=== PATIENT | male | born 1945 | race Caucasian/White ===

== ENCOUNTER 2019-03-12 10:54 | Emergency (ER) | payer OTHER, BC ==
[~2019-03-12] VITALS: Ht 177.8 cm; Wt 117.9 kg
[~2019-03-12 10:54] MED LIST: ALLOPURINOL 30300 M2 PO; ASPIR 8181 MG PO; DIOVAN HCT 3201 EACH PO; INDAPAMIDE1.25 MG PO; LIPITOR10 MG PO; NAPROSYN500 MG PO; NORFLEX100 MG PO; NORVASC5 MG PO; TENORMIN50 MG PO
[2019-03-12 11:57] LABS: URINE BILIRUBIN NEGATIVE (Negative); URINE BLOOD 3+ (Negative); URINE CLARITY CLOUDY; URINE COLOR RED; URINE GLUCOSE-RANDOM* NEGATIVE (Negative); URINE KETONES NEGATIVE (Negative); URINE NITRITE-REFLEX NEGATIVE (Negative); URINE PROTEIN (DIPSTICK) 3+ (Negative)
[2019-03-12 12:06] LABS: URINE LEUKOCYTES-REFLEX 1+ (Negative)
[2019-03-12 12:50] LABS: HEMATOCRIT 42.8 % (42.0-52.0); HEMOGLOBIN 14.4 gm/dL (14.0-18.0); MCH 28.7 pg (26.0-34.0); MCHC 33.6 g/dL (28.0-37.0); MCV 85.4 fL (80.0-100.0); RBC 5.01 mil/uL (4.50-6.00); WBC 8.8 thou/uL (4.0-11.0)
[2019-03-12 12:54] LABS: URINE RBC >20 Many /HPF (0-2)
[2019-03-12 12:55] LABS: CASTS None Seen /LPF (None Seen); CRYSTALS None Seen /LPF (None Seen); SQUAMOUS 0-3 Few /LPF (0-3)
[2019-03-12 13:09] LABS: CALCIUM 9.8 mg/dL (8.5-10.1); CREATININE 1.1 mg/dL (0.7-1.3); POTASSIUM 3.9 mmol/L (3.5-5.1)
[2019-03-12 13:12] LABS: APTT 27.7 Seconds (24.5-32.8); INR 1.1; PROTIME 10.7 Seconds (9.3-11.4)
[2019-03-12] MEDS ORDERED: AUGMENTIN 875-1 EACH PO (14:55)
[2019-03-12 15:14] VITALS: BP 118/76
== END 2019-03-12 15:16 | disposition home or self-care (01) ==
LOC: ER 10:54
PROVIDERS: Emergency Medicine
DX: N39.0 Urinary tract infection, site not specified (principal); R31.0 Gross hematuria; J02.9 Acute pharyngitis, unspecified; I10 Essential (primary) hypertension; M10.9 Gout, unspecified; Z85.46 Personal history of malignant neoplasm of prostate; Z96.642 Presence of left artificial hip joint; Z79.82 Long term (current) use of aspirin